=== PATIENT | female | born 2005 | race Caucasian/White ===

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

== ENCOUNTER → 2023-10-04 | Outpatient (CLI) | payer BC | LOC: M RAD 12:55 | PROVIDERS: ATTEND Nurse Practitioner Family | DX: N94.6 Dysmenorrhea, unspecified (principal) ==

== ENCOUNTER → 2023-10-17 | Outpatient (CLI) | payer BC | LOC: M PLALAB 15:18 | PROVIDERS: ATTEND Nurse Practitioner Family | DX: Z30.011 Encounter for initial prescription of contraceptive pills (principal); N92.0 Excessive and frequent menstruation with regular cycle ==